=== PATIENT | male | born 1970 | race Caucasian/White ===

== ENCOUNTER 2017-12-18 12:27 | Emergency (ER) | payer SELFPAY ==
[2017-12-18 12:57] VITALS: TEMP 98.6; BMI 4452.3
--- NOTE | 2017-12-18 12:59 | PDOC ---
History of Present Illness - General Chief Complaint: Blood Pressure Problem Stated Complaint: LIGHTHEADED (PCP SENT) Time Seen by Provider: 12/18/17 12:59 History Source: Patient - History of Present Illness Initial Comments: 12/18/17 13:32 47 year old male with a PMH of HTN (non adherent) to medication regimen presents from PMD office for elevated BP (180/100). Patient notes a 3 day h/o dull headache which prompted him to visit his PMD today. Patient was given OTD of bystolic and instructed to come to ED for further evaluation. Patient notes he was on Losartan (40 mg QD) and was instructed to start Amlodipine QHS however 2-3 months ago he stopped the medication because he was feeling fine. Notes he has been exercising and watching what he ate for the past 1 year since his HTN diagnosis and has has lost 45 pounds. Endorse blurry vision which he states improved with bystolic. Last lab work was in July 2017. Patient denies chest pain, shortness of breath. Patient denies abdominal pain, diarrhea/constipation, dysuria/hematuria. NKDA Surgical: denies Social: Denies toxic habits Dr. Nimisha De Oliveira M.D. As per EMR patient has not been evaluated at our facility on prior occasion. Past History - Past Medical History Allergies/Adverse Reactions: Allergies Allergy/AdvReac Type Severity Reaction Status Date / Time No Known Allergies Allergy Verified 12/18/17 12:53 CVA: No COPD: No DVT: No HTN: Yes - Suicide/Smoking/Psychosocial Hx Smoking History: Never smoked Information on smoking cessation initiated: No Hx Alcohol Use: Yes Drug/Substance Use Hx: No Substance Use Type: Alcohol *Physical Exam - Vital Signs Last Vital Signs Temp Pulse Resp BP Pulse Ox 98.6 F 79 20 148/108 100 12/18/17 12:54 12/18/17 12:54 12/18/17 12:54 12/18/17 12:54 12/18/17 12:54 Medical Decision Making - Medical Decision Making 12/18/17 13:32 47 year old male with mildly symptomatic (blurry vision now resolved) hypertension. BP @ triage 148/108. Repeat BP @ bedside 150/99. Snellen Test 25/15 B/L. Cardiac, pulmonary PE benign. 12/18/17 13:53 Case d/w Dr. Nimisha De Oliveira agrees w/discharge and patient to follow-up when he returns from his trip to [facility]. Awaiting EKG. Pending 12/18/17 14:34 EKG shows NSR HR 68 no FRANCIS/STD/TWI. At this time patient has been observed for 1+ hour with BP stablization (130's/90's). Will discharge patient home with strong counseling for medication adherence and instruction to follow up with PMD. I discussed the physical exam findings, ancillary test results and final diagnoses with the patient. I answered all of the patient's questions. The patient was satisfied with the care received and felt comfortable with the discharge plan and treatment plan. The patient will return to the Emergency Department with any new, persistent or worsening symptoms. *DC/Admit/Observation/Transfer Diagnosis at time of Disposition: High blood pressure - Discharge Dispostion Disposition: HOME Condition at time of disposition: Good Decision to Admit order: No - Referrals Referrals: Nick Hill [Staff Physician] - Amanda De Oliveira MD [Primary Care Provider] - - Patient Instructions Printed Discharge Instructions: DI for High Blood Pressure Additional Instructions: Please start both of your high blood pressure medications. Make an appointment to see your primary care doctor as soon as you return from your trip to [facility]. Make an appointment for evaluation with an eye doctor (referral provided). Return to the Emergency Department for any new/worsening/concerning symptoms. - Post Discharge Activity
--- NOTE | 2017-12-18 13:37 | PDOC ---
Attending Attestation - Resident Resident Name: Tatiana Bianchi - ED Attending Attestation I have performed the following: I have examined & evaluated the patient, The case was reviewed & discussed with the resident, I agree w/resident's findings & plan, Exceptions are as noted - HPI HPI: 12/18/17 13:36 47y M hx htn was formerly on meds but d/cd it on his own as he was eating right , excercising and loosing weight. pt had a dull mild diffuse headache a few days ago blurred vision when he was working outside, he went to his pmd who referred the pt to the ED for evaluation for hypertension with sbp in the 180s. PT was given a dose of bystolic. Currently pt denies any complaints inclugin cp , sob, palptiations, lightheadedness, headache, visoin changes, neck pain, nv, diaphoresis, back pain. on exam pt in n odisterss no pitting edema abd soft nontender card: rrr, no m/r/g ekg nsr willl dc with pmd fu return precautions were discussed pt has rx for meds written by pmd - Physicial Exam PE: 12/20/17 16:27 see above - Medical Decision Making 12/20/17 16:27 see above
[2017-12-18 14:30] VITALS: BP 133/97; PULSE 72
--- NOTE | 2017-12-19 09:05 | EKG ---
Test Reason : Blood Pressure : / mmHG Vent. Rate : 068 BPM Atrial Rate : 068 BPM P-R Int : 162 ms QRS Dur : 090 ms QT Int : 400 ms P-R-T Axes : 031 -06 008 degrees QTc Int : 425 ms NORMAL SINUS RHYTHM POSSIBLE LEFT ATRIAL ENLARGEMENT BORDERLINE ECG NO PREVIOUS ECGS AVAILABLE Confirmed by RODGER DAHL, LYNN ([id number]) on 12/19/2017 9:04:37 AM Referred By: Confirmed By:LYNN SOARES MD
== END 2017-12-18 14:54 | disposition home or self-care (01) ==
LOC: JER 12:27
DX: I10 Essential (primary) hypertension (principal)
CPT/HCPCS: 93005; 93010; 99283-25